=== PATIENT | female | born 2000 | race Caucasian/White ===

== ENCOUNTER 2019-07-08 12:14 | Emergency (ER) | payer OTHER ==
[~2019-07-08] VITALS: Ht 167.6 cm; Wt 54.4 kg
[2019-07-08 12:18] VITALS: Ht 167.6 cm; Wt 54.4 kg
[2019-07-08 15:45] VITALS: BP 99/66
== END 2019-07-08 15:57 | disposition home or self-care (01) ==
LOC: ED 12:14
DX: J02.9 Acute pharyngitis, unspecified (principal)

== ENCOUNTER 2019-07-11 21:40 | Emergency (ER) | payer OTHER ==
[~2019-07-11] VITALS: Ht 167.6 cm; Wt 56.0 kg
[2019-07-11 23:58] VITALS: BP 114/63
== END 2019-07-11 23:58 | disposition home or self-care (01) ==
LOC: ED 21:40
DX: J03.90 Acute tonsillitis, unspecified (principal); J45.909 Unspecified asthma, uncomplicated
CPT/HCPCS: J0696; J1100; J1885; J7030; J7060

== ENCOUNTER 2019-07-24 17:13 | Emergency (ER) | payer OTHER ==
[~2019-07-24] VITALS: Ht 167.6 cm; Wt 54.0 kg
[2019-07-24 17:31] VITALS: Ht 167.6 cm; Wt 54.0 kg
[2019-07-24 18:22] LABS: BASOPHIL % 0.3 % (0-2); PLATELET COUNT 287 x10^3mcL (130-400); RED CELL DISTRIBUTION WIDTH 14.4 % (11.5-14.5)
[2019-07-24 18:53] LABS: SODIUM SERUM 137 mmol/L (136-145)
[2019-07-24 18:54] LABS: ALT/SGPT 28 U/L (14-59); AST/SGOT 16 U/L (15-37); CALCIUM 8.3 mg/dL (8.5-10.1); CARBON DIOXIDE 30.3 mmol/L (21-32); CHLORIDE SERUM 100 mmol/L (98-107); CREATININE SERUM 0.6 mg/dL (0.6-1.0); GFR1 > 60 mL/min; GLUCOSE SERUM 97 mg/dL (74-106); POTASSIUM SERUM 2.9 mmol/L (3.5-5.1)
[2019-07-24 19:13] LABS: TOTAL PROTEIN, SERUM 7.9 g/dL (6.4-8.2)
[2019-07-24 19:14] LABS: ALKALINE PHOSPHATASE 102 U/L (46-116); BILIRUBIN TOTAL 0.63 mg/dL (0.20-1.00)
[2019-07-24 22:59] VITALS: BP 127/82
== END 2019-07-24 22:59 | disposition short-term general hospital (02) ==
LOC: ED 17:13
PROVIDERS: Emergency Medicine
DX: L04.0 Acute lymphadenitis of face, head and neck (principal); B27.90 Infectious mononucleosis, unspecified without complication; E87.6 Hypokalemia; J45.909 Unspecified asthma, uncomplicated
CPT/HCPCS: 86308; J7030; Q9967